=== PATIENT | female | born 1975 | race Caucasian/White ===

== ENCOUNTER 2017-02-24 12:59 | Emergency (ER) | payer OTHER ==
--- NOTE | 2017-02-24 13:07 | EDPHY ---
H & P HPI/ROS: CHIEF COMPLAINT: Chest discomfort, arm pain HISTORY OF PRESENT ILLNESS: The patient is a 41 y/o female, with a history of chronic pain, arriving with her friend complaining of intermittent non- localized chest "discomfort" for the last 3 days. She reports she has had intermittent dizziness that she believes is related to low blood pressure for the last couple weeks. She has an appointment scheduled with her "alternative medicine" PCP tomorrow. Her dizziness worsened 10 days ago while she was visiting [place] and within the last 3 days she developed chest tightness, coughing, and left arm pain that she also attributes to low blood pressure. She reports these symptoms improved with rest and consuming salt. She flew back from [place] last night and reports she had some bilateral calf pain during the flight that has since resolved; no calf swelling. She currently describes a "crinkly sensation" in her upper abdomen, "shakiness" in her chest without pain, left trapezius pain, nausea, and left forearm, and thumb, and 5th finger pain that is worse than baseline. Her chest discomfort is not aggravated by inspiration and she cannot identify obvious precipitating factors. She denies shortness of breath or fever. No recent history of trauma. She is a smoker, but denies history of hyperlipidemia, hypertension, or diabetes. No cardiac disease in first degree relatives. She also reports occasional confusion. This is not associated with headache, numbness, or weakness. She has not had difficulty with speech or change in her vision. The confusion is intermittent and apparently short-lived. She takes alprazolam for sleep. Her other medications are non prescription supplements. REVIEW OF SYSTEMS: A ten point review of systems was performed and is negative with the exception of the items mentioned in the HPI. Source: Patient - Medical/Surgical History PMH: PMH includes: 1. Chronic abdominal pain 2. Pancreatitis 3. Chronic fatigue and malaise 4. Fibromyalgia 5. Possible bipolar disorder 6. PTSD 7. "adrenal fatigue" 8. Anxiety PSH includes: 1. Right leg surgery secondary to trauma Family history: grandfather developed cardiac disease and had multiple MIs starting in his 50s; hypertension; mother - kidney cancer and diabetes; hyperlipidemia Prior medical records reviewed including admission 05/11/16 for headache and abdominal pain. Hx Asthma: No Hx Chronic Respiratory Disease: No Hx Diabetes: No Hx Cardiac Disease: No Hx Renal Disease: No Hx Cirrhosis: No Hx Alcoholism: No Hx HIV/AIDS: No Hx Splenectomy or Spleen Trauma: No Other PMH: htn,fibromyalgia,tachycardia,PTSD. 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 PCP: Dr. Alma Arroyo - Physical Exam Exam: General Appearance: Alert. Vital signs reviewed. Blood pressure 125/77. Eyes: Pupils equal and round, no conjunctival injection, no discharge. Anicteric. ENT, Mouth: Mucous membranes are moist, no oropharyngeal erythema or edema. Neck: No lymphadenopathy, supple. Respiratory: Lungs are clear to auscultation; no wheezes, rales, or rhonchi. Cardiovascular: Regular rate and rhythm; no murmur, rub, or gallop. Gastrointestinal: Abdomen is soft and with mild LUQ tenderness, no masses or organomegaly, bowel sounds normal. Skin: Warm and dry, no rashes on exposed skin, normal color. Back: Nontender to palpation over the thoracolumbar spine. No CVAT. Extremities: No lower extremity edema, no calf tenderness or swelling. Neurological: Alert and oriented. Moving all four extremities easily and equally. Strength is 5 over 5 bilaterally with testing of all major motor groups. Sensation is intact to light touch over all 4 extremities. Deep tendon reflexes are 2+ in the biceps and knees bilaterally. Psychiatric: Normal affect. Constitutional: Initial Vital Signs Temperature (C) 37.1 C 02/24/17 13:06 Heart Rate 77 02/24/17 13:06 Respiratory Rate 18 02/24/17 13:06 Blood Pressure 125/77 H 02/24/17 13:06 O2 Sat (%) 98 02/24/17 13:06 O2 Delivery Mode Room Air Allergies/Adverse Reactions: Penicillins Allergy (Verified 05/11/16 16:32) Home Medications: Medication Instructions Recorded ALPRAZOLAM 0.5 mg PO HS PRN 05/11/16 Herbals/Supplements -Info Only 1 ea PO DAILY 05/11/16 Medical Decision Making - Diagnostics EKG Interpretation: The 12 lead EKG was interpreted by myself. Sinus rhythm rate 58. See hard copy and/or "tracemaster" electronic copy for interpretation. ED Course/Re-evaluation: IV established. Labs drawn including CBC, CHEM, troponin, d-dimer. 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 Labs including CBC, chemistries, D-dimer reviewed and within normal limits. Is low risk for pulmonary embolus but has been on a recent long airplane. Given the normal D-dimer and a Wells score of 0 I feel that no further workup for pulmonary embolus is warranted. Troponin is pending at 2:25 p.m.. EKG is normal. 1450: Troponin is negative. I do not think that her chest discomfort is secondary to myocardial ischemia. Although she describes a cough, that improves when she changes position, I do not suspect pneumonia. She has not had fever and has normal lung sounds. She does not appear ill in general. Nor do I suspect pneumothorax. The left forearm and hand pain that she describes is not radicular in distribution, nor is it dermatomal. She has normal strength and sensation on exam. I do not think that she needs any neck imaging at this point in time. She understands that the etiology of her symptoms remains unclear. Her primary goal was to be reassured that she is not having heart attack. I do not think that she is having a heart attack and I tried to reassure her on that point. Patient will be discharged with instructions to keep her PCP appointment tomorrow. Return precautions given. She is comfortable with this plan. Differential Diagnosis: Chest pain including but not limited to myocardial ischemia, pulmonary embolus, chest wall pain, pleural inflammation and pulmonary infectious causes. - Data Points Laboratory Results: Laboratory Results 02/24/17 13:50 02/24/17 13:50 Departure - Departure Disposition: Home, Routine, Self-Care Clinical Impression: Non-cardiac chest pain Condition: Good Instructions: Noncardiac Chest Pain (ED) Additional Instructions: 1. Keep your appointment with your primary care provider tomorrow. 2. Return to the ED for severe pain, difficulty breathing, or other worsening of condition. Referrals: MORGAN LICONA [Other] - As per Instructions Report Scribed for: Pamela Maria Report Scribed by: Barbara Jay Date of Report: 02/24/17 Time of Report: 13:12 Physician Review and Approval Statement: 02/24/17 13:07 Portions of this note were transcribed by the medical technologist chemistry. I, Dr. Pamela Maria, personally performed the history, physical exam, and medical decision- making; and confirmed the accuracy of the information in the transcribed note.
--- NOTE | 2017-02-24 13:17 | CPEKG ---
Heart Rate: 58 RR Interval: 1034 P-R Interval: 152 QRSD Interval: 82 QT Interval: 432 QTC Interval: 425 P Stanton: 65 QRS Stanton: 82 T Wave Stanton: 62 EKG Severity - NORMAL ECG - EKG Impression: SINUS RHYTHM Electronically Signed By: Pamela Maria 24-Feb-2017 14:25:27
[2017-02-24 13:57] LABS: % IMMATURE GRANULYOCYTES 0.4 % (0.0-1.1); ABSOLUTE IMMATURE GRANULOCYTES 0.03 10^3/uL (0.00-0.10); ADD DIFF? NO; ADD MORPH? NO; ADD SCAN? NO; ATYPICAL LYMPHOCYTE FLAG 40 (0-99); FRAGMENT RBC FLAG 0 (0-99); HEMATOCRIT 44.2 % (38.0-47.0); HEMOGLOBIN 14.9 g/dL (12.6-16.3); LEFT SHIFT FLG 0 (0-99); LIPEMIA HEMOLYSIS FLAG 80 (0-99); MEAN CELL HEMOGLOBIN 31.8 pg (27.9-34.1); MEAN CELL HEMOGLOBIN CONCENTR. 33.7 g/dL (32.4-36.7); MEAN CELL VOLUME 94.4 fL (81.5-99.8); MEAN PLATELET VOLUME 10.4 fL (8.7-11.7); PLATELET CLUMPS FLAG 0 (0-99); PLATELET COUNT 350 10^3/uL (150-400); RED BLOOD CELL COUNT 4.68 10^6/uL (4.18-5.33); RED CELL DISTRIBUTION WIDTH 12.5 % (11.5-15.2)
[2017-02-24 14:20] LABS: ANION GAP 8 mEq/L (8-16); CALCIUM 9.6 mg/dL (8.5-10.4); CARBON DIOXIDE 26 mEq/l (22-31); CHLORIDE 105 mEq/L (97-110); CREATININE 0.8 mg/dL (0.6-1.0); GLOMERULAR FILTRATION RATE > 60; GLUCOSE 83 mg/dL (70-100); POTASSIUM 4.1 mEq/L (3.5-5.2); SODIUM 139 mEq/L (134-144)
[2017-02-24 14:30] LABS: TROPONIN I < 0.012 ng/mL (0-0.034)
[2017-02-24 15:25] VITALS: BP 121/90; PULSE 63; RESP 16; TEMP 98.6; O2SAT 99
== END 2017-02-24 15:10 | disposition home or self-care (01) ==
DX: R07.89 Other chest pain (principal); I10 Essential (primary) hypertension; F17.200 Nicotine dependence, unspecified, uncomplicated